=== PATIENT | female | born 1955 | race Caucasian/White ===

== ENCOUNTER 2016-11-11 10:40 | Outpatient (CLI) | payer OTHER ==
[2016-11-11 11:56] LABS: Eosinophils 2 % (0-10); Hemoglobin 12.4 g/dL (12.0-16.0); Lymphocytes 30 % (21-51); MDiff Complete? YES; Mean Corpuscular HGB CONC 35.5 g/dL (32.0-36.0); Mean Corpuscular Hemoglobin 32.4 pg (27.0-31.0); Mean Corpuscular Volume 91.2 fl (81.0-99.0); Mean Platelet Volume 12.1 fL (7.4-10.4); Monocytes 6 % (0-10); Neutrophil 62 % (42-75); PLT Morphology Comment PLATELETS DECREASED ON SLIDE; Platelet Count 88 thou/uL (130-400); RBC Distribution Width 13.7 % (11.5-14.5); Red Blood Cell (RBC) Count 3.81 mill/uL (4.20-5.40); White Blood Cell (WBC) Count 2.2 thou/uL (4.8-10.8)
[2016-11-11 12:05] LABS: ALT (SGPT) Less than 6 U/L (0-55); AST (SGOT) 17 U/L (5-34); Albumin 4.3 g/dL (3.5-5.0); Alkaline Phosphatase 54 U/L (40-150); Anion Gap 15 mmol/L (10-20); BUN (Urea Nitrogen) 10 mg/dL (9.8-20.1); Bilirubin, Total 0.9 mg/dL (0.2-1.2); Calc. Creatinine Clearance 0 mL/min (70-130); Calcium 9.5 mg/dL (7.8-10.44); Carbon Dioxide 25 mmol/L (22-29); Chloride 106 mmol/L (98-107); Estimated GFR-MDRD 60; Globulin 2.8 g/dL (2.4-3.5); Glucose 89 mg/dL (70-105); Potassium 3.9 mmol/L (3.5-5.1); Protein, Total 7.1 g/dL (6.0-8.3); Sodium 142 mmol/L (136-145)
== END 2016-11-11 10:41 | disposition home or self-care (01) ==
LOC: MADLABBHPM 10:40
PROVIDERS: ATTEND Family Medicine
DX: R63.4 Abnormal weight loss (principal)
CPT/HCPCS: 36415; 80053; 84443; 85007; 85027; 85652

== ENCOUNTER 2016-12-09 07:29 | Outpatient (CLI) | payer OTHER ==
[2016-12-09 17:32] LABS: Iron 101 ug/dL (50-170); Iron Binding Capacity, Total 250 mcg/dL (265-497)
[2016-12-09 17:50] LABS: Folate (Folic Acid) 11.5 ng/mL (7.0-31.4)
== END 2016-12-09 07:30 | disposition home or self-care (01) ==
LOC: MADLAB 07:29
PROVIDERS: ATTEND Physician Assistant Medical
DX: D61.818 Other pancytopenia (principal)
CPT/HCPCS: 36415; 82607; 82728; 82746; 83540; 83550

== ENCOUNTER 2017-01-20 08:18 | Outpatient (CLI) | payer OTHER ==
[2017-01-20 09:22] LABS: ALT (SGPT) 9 U/L (0-55); AST (SGOT) 26 U/L (5-34); Albumin 4.5 g/dL (3.5-5.0); Alkaline Phosphatase 49 U/L (40-150); Anion Gap 20 mmol/L (10-20); BUN (Urea Nitrogen) 15 mg/dL (9.8-20.1); Bilirubin, Direct 0.5 mg/dL (0.1-0.3); Bilirubin, Total 1.1 mg/dL (0.2-1.2); Calc. Creatinine Clearance 0 mL/min (70-130); Calcium 9.9 mg/dL (7.8-10.44); Carbon Dioxide 24 mmol/L (22-29); Cardiac Risk 4.1 (Less than 4.5); Chloride 99 mmol/L (98-107); Cholesterol 178 mg/dL (< 200 Desired); Estimated GFR-MDRD 45; Glucose 103 mg/dL (70-105); HDL Cholesterol 43 mg/dL (>60 Neg Risk); LDL Cholesterol, Calculated 107 mg/dL; Protein, Total 7.6 g/dL (6.0-8.3); Sodium 140 mmol/L (136-145); Triglycerides 138 mg/dL (Less than 150)
[2017-01-20 09:40] LABS: #Basophils 0.1 thou/uL (0.0-0.2); #Eosinphils 0.1 thou/uL (0.0-0.7); #Lymphocytes 1.5 thou/uL (1.20-3.40); #Monocytes 0.1 thou/uL (0.11-0.59); #Neutrophils 2.4 thou/uL (1.40-6.50); %Basophils 1.4 % (0.0-1.0); %Eosinophils 1.4 % (0.0-10.0); %Lymphocytes 35.4 % (21.0-51.0); %Monocytes 3.4 % (0.0-10.0); %Neutrophils 58.4 % (42.0-75.0); Hemoglobin 13.8 g/dL (12.0-16.0); Large Platelets SLIGHT; MDiff Complete? YES; Mean Corpuscular HGB CONC 36.2 g/dL (32.0-36.0); Mean Corpuscular Hemoglobin 33.3 pg (27.0-31.0); Mean Corpuscular Volume 91.8 fl (81.0-99.0); Mean Platelet Volume 13.1 fL (7.4-10.4); PLT Morphology Comment Appears Decreased; Platelet Count 121 thou/uL (130-400); RBC Distribution Width 13.8 % (11.5-14.5); Red Blood Cell (RBC) Count 4.15 mill/uL (4.20-5.40); White Blood Cell (WBC) Count 4.2 thou/uL (4.8-10.8)
[2017-01-20 11:24] LABS: Potassium 2.8 mmol/L (3.5-5.1)
== END 2017-01-20 08:19 ==
LOC: MADLABBHPM 08:18
PROVIDERS: ATTEND Family Medicine
DX: D69.6 Thrombocytopenia, unspecified (principal); R63.4 Abnormal weight loss
CPT/HCPCS: 36415; 80048; 80061; 80076; 82306; 82607; 85025

== ENCOUNTER 2017-01-31 07:54 | Outpatient (CLI) | payer OTHER ==
[2017-01-31 08:27] LABS: Anion Gap 18 mmol/L (10-20); BUN (Urea Nitrogen) 16 mg/dL (9.8-20.1); Calc. Creatinine Clearance 0 mL/min (70-130); Calcium 9.7 mg/dL (7.8-10.44); Carbon Dioxide 20 mmol/L (22-29); Chloride 106 mmol/L (98-107); Estimated GFR-MDRD 50; Glucose 112 mg/dL (70-105); Potassium 3.9 mmol/L (3.5-5.1); Sodium 140 mmol/L (136-145)
== END 2017-01-31 07:55 | disposition home or self-care (01) ==
LOC: MADLABBHPM 07:54
PROVIDERS: ATTEND Family Medicine
DX: E87.6 Hypokalemia (principal)
CPT/HCPCS: 36415; 80048

== ENCOUNTER 2017-05-31 08:25 | Outpatient (CLI) | payer OTHER ==
[2017-05-31 11:01] LABS: #Eosinphils 0.1 thou/uL (0.0-0.7); #Lymphocytes 0.9 thou/uL (1.20-3.40); #Monocytes 0.2 thou/uL (0.11-0.59); #Neutrophils 1.6 thou/uL (1.40-6.50); %Basophils 0.8 % (0.0-1.0); %Eosinophils 2.7 % (0.0-10.0); %Lymphocytes 33.5 % (21.0-51.0); %Monocytes 5.4 % (0.0-10.0); %Neutrophils 57.6 % (42.0-75.0); Large Platelets SLIGHT; MDiff Complete? YES; Mean Corpuscular HGB CONC 33.1 g/dL (32.0-36.0); Mean Corpuscular Hemoglobin 33.9 pg (27.0-31.0); Mean Corpuscular Volume 102.3 fl (81.0-99.0); PLT Morphology Comment Appears Decreased; Platelet Count 74 thou/uL (130-400); RBC Distribution Width 13.4 % (11.5-14.5); Red Blood Cell (RBC) Count 3.24 mill/uL (4.20-5.40); White Blood Cell (WBC) Count 2.7 thou/uL (4.8-10.8)
== END 2017-05-31 08:26 | disposition home or self-care (01) ==
LOC: MADLABBHPM 08:25
PROVIDERS: ATTEND Family Medicine
DX: E53.9 Vitamin B deficiency, unspecified (principal)
CPT/HCPCS: 36415; 82607; 85025

== ENCOUNTER 2017-06-02 14:17 | Outpatient (CLI) | payer OTHER | END 2017-06-02 14:18 | disposition home or self-care (01) | LOC: MADLABBHPM 14:17 | PROVIDERS: ATTEND Family Medicine | DX: D53.9 Nutritional anemia, unspecified (principal) | CPT/HCPCS: 36415; 82746 ==

== ENCOUNTER 2018-06-28 09:04 | Outpatient (CLI) | payer BC ==
[2018-06-28 09:54] LABS: INR-International Normal Ratio 1.1; Prothrombin Time 13.9 SEC (12.0-14.7)
[2018-06-28 10:09] LABS: ALT (SGPT) 19 U/L (8-55); AST (SGOT) 37 U/L (5-34); Albumin 3.8 g/dL (3.4-4.8); Alkaline Phosphatase 91 U/L (40-150); Bilirubin, Direct 0.2 mg/dL (0.1-0.3); Bilirubin, Total 0.6 mg/dL (0.2-1.2); Protein, Total 7.1 g/dL (6.0-8.3)
== END 2018-06-28 09:05 | disposition home or self-care (01) ==
LOC: MADLABBHPM 09:04
PROVIDERS: ATTEND Family Medicine
DX: K75.4 Autoimmune hepatitis (principal)
CPT/HCPCS: 36415; 80076; 85610

== ENCOUNTER 2018-09-25 08:33 | Outpatient (CLI) | payer BC | END 2018-09-25 08:34 | disposition home or self-care (01) | LOC: MADEKG 08:33 | PROVIDERS: ATTEND Family Medicine | DX: I49.9 Cardiac arrhythmia, unspecified (principal) | CPT/HCPCS: 93005; 93010 ==

== ENCOUNTER 2019-09-26 07:45 | Outpatient (CLI) | payer MEDICARE ==
[2019-09-26 14:34] LABS: ALT (SGPT) 16 U/L (8-55); AST (SGOT) 30 U/L (5-34); Alkaline Phosphatase 109 U/L (40-110); Anion Gap 15 mmol/L (10-20); BUN (Urea Nitrogen) 11 mg/dL (9.8-20.1); Calc. Creatinine Clearance 0 mL/min (70-130); Calcium 9.4 mg/dL (7.8-10.44); Carbon Dioxide 24 mmol/L (23-31); Chloride 106 mmol/L (98-107); Estimated GFR-MDRD 43; Globulin 3.7 g/dL (2.4-3.5); Glucose 140 mg/dL (80-115); Potassium 3.9 mmol/L (3.5-5.1); Protein, Total 7.7 g/dL (6.0-8.3); Sodium 141 mmol/L (136-145)
[2019-09-26 14:45] LABS: #Lymphocytes 1.2 thou/uL (1.20-3.40); #Monocytes 0.2 thou/uL (0.11-0.59); %Basophils 0.7 % (0.0-1.0); %Eosinophils 0.1 % (0.0-10.0); %Monocytes 4.7 % (0.0-10.0); %Neutrophils 66.5 % (42.0-75.0); Hemoglobin 13.3 g/dL (12.0-16.0); Mean Corpuscular HGB CONC 29.9 g/dL (32.0-36.0); Mean Corpuscular Hemoglobin 28.1 pg (27.0-31.0); Mean Corpuscular Volume 94.1 fL (78.0-98.0); Mean Platelet Volume 9.9 fL (7.4-10.4); Platelet Count 109 thou/uL (130-400); RBC Distribution Width 14.3 % (11.5-14.5); Red Blood Cell (RBC) Count 4.72 mill/uL (4.20-5.40); White Blood Cell (WBC) Count 4.4 thou/uL (4.8-10.8)
[2019-09-26 15:34] LABS: Anisocytosis SLIGHT = 6-15 cells (100X) (0-5/hpf); Platelet Morphology Comment Appears Decreased
== END 2019-09-26 07:46 | disposition home or self-care (01) ==
LOC: MADLABBHPM 07:45
PROVIDERS: ATTEND Family Medicine
DX: N18.9 Chronic kidney disease, unspecified (principal); K75.4 Autoimmune hepatitis
CPT/HCPCS: 36415; 80053; 85025

== ENCOUNTER 2019-11-17 12:07 | Emergency (ER) | payer MEDICARE ==
--- NOTE | 2019-11-17 12:49 | RAD ---
PORTABLE CHEST: HISTORY: Trauma. FINDINGS: The lungs appear clear. No infiltrate or effusion. Heart and mediastinum unremarkable. The visuali zed bony thorax appears intact. IMPRESSION: No acute findings. POS: [facility]
--- NOTE | 2019-11-17 12:59 | RAD ---
EXAM: 3 views of the right shoulder HISTORY: Shoulder pain COMPARISON: None FINDINGS: There is no evidence of acute fracture or dislocation. No degenerative changes are present. No soft tissue swelling is seen. The visualized thorax is unremarkable. IMPRESSION: No evidence of acute osseous abnormality.
--- NOTE | 2019-11-17 13:08 | RAD ---
RIGHT HIP 2 VIEWS: HISTORY: Joint pain. COMPARISON: 10/23/2014 exam. FINDINGS: Mild degenerative changes of the hip. Very mild spurring from the femoral head and acetabulum, not s ignificantly changed from 2014. No fracture or acute abnormality. IMPRESSION: Mild degenerative change at the right hip. POS: [facility]
--- NOTE | 2019-11-17 13:11 | RAD ---
EXAM: Right knee: 4 views INDICATIONS: Knee pain COMPARISON: None. FINDINGS: Joint spaces are maintained. Mild degenerative spurring from the patella. Minimal degenerat henna change at the medial and lateral joint spaces. No joint effusion. No fracture or acute abnormality. IMPRESSION: Very mild degenerative change
--- NOTE | 2019-11-17 13:30 | CT ---
EXAM: CT brain without contrast HISTORY: Head trauma COMPARISON: None TECHNIQUE: Multiple contiguous axial images were obtained and a CT of the brain without contrast. Sag ittal and coronal reformats were performed. FINDINGS: There are scattered hypodensities in the subcortical and periventricular white matter consi stent with small vessel ischemic disease. There is no evidence of hydrocephalus, intracranial hemorrhage, or extra-axial fluid collection. The calvarium and overlying soft tissues are unremarkable. The visualized paranasal sinuses and masto id air cells are well aerated. IMPRESSION: No evidence of acute intracranial abnormality
--- NOTE | 2019-11-17 13:32 | CT ---
EXAM: CT of the cervical spine without contrast HISTORY: Head trauma with neck pain COMPARISON: None TECHNIQUE: Multiple contiguous axial images were obtained in a CT of the cervical spine without contr ast. Sagittal and coronal reformats were performed. FINDINGS: The vertebral bodies and intervertebral discs demonstrate normal height and alignment witho ut fracture or subluxation. No degenerative changes are present. No prevertebral soft tissue swelling is seen. The posterior facets are well aligned. Normal alignment of the skull base with the cervical spine is seen. The lung apices and cervical soft tissues are unremarkable. IMPRESSION: No evidence of acute osseous abnormality of the cervical spine.
--- NOTE | 2019-11-17 13:33 | CT ---
EXAM: CT of the thoracic spine without contrast HISTORY: Back pain after trauma COMPARISON: None TECHNIQUE: Multiple contiguous axial images were obtained in a CT of the thoracic spine without contr ast. Sagittal and coronal reformats were performed. FINDINGS: The vertebral bodies and intervertebral discs demonstrate normal height and alignment witho ut fracture or subluxation. . No degenerative changes are present. Calcified granulomas are seen in the visualized lungs.. The prevertebral and paraspinal soft tissue s are unremarkable. IMPRESSION: No evidence of acute osseous abnormality of the thoracic spine.
--- NOTE | 2019-11-17 13:34 | CT ---
EXAM: CT of the lumbar spine without contrast HISTORY: Low back pain after trauma COMPARISON: None TECHNIQUE: Multiple contiguous axial images were obtained in a CT of the lumbar spine without contras t. Sagittal and coronal reformats were performed. FINDINGS: The vertebral bodies and intervertebral discs demonstrate normal height and alignment witho ut fracture or subluxation. . Mild diffuse degenerative changes are present. Gallbladder has been removed.. The visualized prevertebral and paraspinal soft tissues are unremark able. IMPRESSION: No evidence of acute osseous abnormality of the lumbar spine.
[2019-11-17 13:48] LABS: #Lymphocytes 0.8 thou/uL (1.20-3.40); #Monocytes 0.3 thou/uL (0.11-0.59); #Neutrophils 3.1 thou/uL (1.40-6.50); %Basophils 0.8 % (0.0-1.0); %Eosinophils 0.2 % (0.0-10.0); %Lymphocytes 18.3 % (21.0-51.0); %Monocytes 6.5 % (0.0-10.0); %Neutrophils 74.2 % (42.0-75.0); Anion Gap 12 mmol/L (10-20); BUN (Urea Nitrogen) 10 mg/dL (9.8-20.1); Calc. Creatinine Clearance 0 mL/min (70-130); Calcium 9.3 mg/dL (7.8-10.44); Carbon Dioxide 28 mmol/L (23-31); Chloride 108 mmol/L (98-107); Estimated GFR-MDRD 48; Glucose 80 mg/dL (80-115); Hemoglobin 11.9 g/dL (12.0-16.0); Large Platelets SLIGHT; MDiff Complete? YES; Mean Corpuscular HGB CONC 30.7 g/dL (32.0-36.0); Mean Corpuscular Hemoglobin 28.3 pg (27.0-31.0); Mean Corpuscular Volume 92.1 fL (78.0-98.0); Platelet Count 77 thou/uL (130-400); Platelet Morphology Comment HX OF DECREASED PLATELETS; Potassium 4.6 mmol/L (3.5-5.1); RBC Distribution Width 14.4 % (11.5-14.5); Red Blood Cell (RBC) Count 4.22 mill/uL (4.20-5.40); Sodium 143 mmol/L (136-145); White Blood Cell (WBC) Count 4.2 thou/uL (4.8-10.8)
[2019-11-17 14:46] LABS: Bilirubin Negative (Negative); Blood, Urine Negative (Negative); Clarity Clear (Clear); Glucose, Urine (Dipstick) Negative (Negative); Leukocyte Negative (Negative); Nitrite Negative (Negative); Protein, Urine (Dipstick) Trace mg/dL (Neg-Trace)
== END 2019-11-17 15:00 | disposition home or self-care (01) ==
LOC: MADERS 12:07
DX: S70.01XA Contusion of right hip, initial encounter (principal); S40.011A Contusion of right shoulder, initial encounter; S50.811A Abrasion of right forearm, initial encounter; W18.30XA Fall on same level, unspecified, initial encounter
CPT/HCPCS: 36415; 70450; 71045; 72125; 72128; 72131; 80048; 81003; 85025

== ENCOUNTER 2020-11-25 16:57 | Emergency (ER) | payer MEDICARE ==
--- NOTE | 2020-11-25 18:11 | RAD ---
PORTABLE CHEST: 11/25/20 COMPARISON: 11/17/19 exam. HISTORY: Syncope. FINDINGS: Heart size and mediastinum within normal limits for a portable technique. The lungs are clear of any infiltrative process. IMPRESSION: No active intrathoracic disease. POS: [facility]
[2020-11-25 18:21] LABS: Band 1 % (5-11); Hemoglobin 13.4 g/dL (12.0-16.0); Large Platelets SLIGHT; Lymphocytes 5 % (21-51); MDiff Complete? YES; Mean Corpuscular HGB CONC 32.5 g/dL (32.0-36.0); Mean Corpuscular Hemoglobin 28.6 pg (27.0-31.0); Mean Platelet Volume 10.6 fL (7.4-10.4); Monocytes 3 % (0-10); Neutrophil 85 % (42-75); Platelet Count 106 thou/uL (130-400); Platelet Morphology Comment Appears Decreased; RBC Distribution Width 14.4 % (11.5-14.5); RBC Morphology Normal; Reactive Lymphocytes 6 % (0-10); White Blood Cell (WBC) Count 6.6 thou/uL (4.8-10.8)
[2020-11-25 18:24] LABS: ALT (SGPT) 17 U/L (8-55); AST (SGOT) 45 U/L (5-34); Albumin 3.7 g/dL (3.4-4.8); Alkaline Phosphatase 95 U/L (40-110); Anion Gap 17 mmol/L (10-20); BUN (Urea Nitrogen) 10 mg/dL (9.8-20.1); Bilirubin, Total 1.1 mg/dL (0.2-1.2); Calc. Creatinine Clearance 0 mL/min (70-130); Calcium 8.8 mg/dL (7.8-10.44); Carbon Dioxide 18 mmol/L (23-31); Chloride 108 mmol/L (98-107); Globulin 4.4 g/dL (2.4-3.5); Glucose 160 mg/dL (80-115); Potassium 3.9 mmol/L (3.5-5.1); Protein, Total 8.1 g/dL (5.8-8.1); Sodium 139 mmol/L (136-145)
== END 2020-11-25 19:58 | disposition home or self-care (01) ==
LOC: MADERS 16:57
DX: R41.82 Altered mental status, unspecified (principal); R26.9 Unspecified abnormalities of gait and mobility; Z79.899 Other long term (current) drug therapy
CPT/HCPCS: 51701; 71045; 80053; 84443; 84484; 85025; 93005

== ENCOUNTER 2020-11-26 15:13 | Emergency (ER) | payer MEDICARE ==
[2020-11-26 16:21] LABS: Bilirubin Large (Negative); Blood, Urine Trace (Negative); Glucose, Urine (Dipstick) 100 mg/dL (Negative); Ketone, Urine 40 mg/dL (Negative); Leukocyte Negative (Negative); Nitrite Positive (Negative); Protein, Urine (Dipstick) > or equal to 300 mg/dL (Neg-Trace); Urobilinogen > or = 8.0 mg/dL (Less than 2)
[2020-11-26 16:26] LABS: Clarity Hazy (Clear)
[2020-11-26 16:27] LABS: Bacteria/HPF Rare-Few HPF (None Seen); Mucous/LPF 1+ LPF (<2+); RBC/HPF 0-3 HPF (0-3); Specific Gravity, Urine 1.033 (1.002-1.036); WBC/HPF 0-3 HPF (0-3)
[2020-11-26 16:33] LABS: THC/Cannabinoid Screen Not Detected (NotDetected)
[2020-11-26 16:34] LABS: Amphetamine Not Detected (NotDetected); Barbiturates Screen Not Detected (NotDetected); Benzodiazepine Screen Not Detected (NotDetected); Cocaine Metabolite Screen Not Detected (NotDetected); Medtox Control Line Valid? VALID (VALID); Methadone Not Detected (NotDetected); Methamphetamine Detected (NotDetected); Opiate Screen Not Detected (NotDetected); Oxycodone Screen Not Detected (NotDetected); Phencyclidine (PCP) Detected (NotDetected); Tricyclic Screen Not Detected (NotDetected)
[2020-11-27 13:58] LABS: Reference Lab Name LABCORP
[2020-11-27 14:01] LABS: Ref Lab Test Ordered CONF PCP/METHAMPHETA
== END 2020-11-26 20:25 | disposition home or self-care (01) ==
LOC: MADERS 15:13
DX: F23 Brief psychotic disorder (principal); F03.90 Unspecified dementia, unspecified severity, without behavioral disturbance, psychotic disturbance, mood disturbance, and anxiety; R45.1 Restlessness and agitation
CPT/HCPCS: 36416; 51701; 80306; 81003; 81015

== ENCOUNTER 2020-11-27 15:59 | Emergency (ER) | payer MEDICARE ==
[2020-11-27 17:34] LABS: ALT (SGPT) 18 U/L (8-55); AST (SGOT) 46 U/L (5-34); Albumin 3.4 g/dL (3.4-4.8); Alkaline Phosphatase 79 U/L (40-110); Anion Gap 16 mmol/L (10-20); BUN (Urea Nitrogen) 18 mg/dL (9.8-20.1); Bilirubin, Total 0.9 mg/dL (0.2-1.2); Calc. Creatinine Clearance 0 mL/min (70-130); Calcium 8.3 mg/dL (7.8-10.44); Carbon Dioxide 22 mmol/L (23-31); Chloride 108 mmol/L (98-107); Globulin 3.9 g/dL (2.4-3.5); Glucose 113 mg/dL (80-115); Potassium 3.7 mmol/L (3.5-5.1); Protein, Total 7.3 g/dL (5.8-8.1); Sodium 142 mmol/L (136-145)
[2020-11-27 17:35] LABS: #Lymphocytes 0.6 thou/uL (1.20-3.40); #Monocytes 0.2 thou/uL (0.11-0.59); #Neutrophils 1.8 thou/uL (1.40-6.50); %Basophils 0.7 % (0.0-1.0); %Eosinophils 0.2 % (0.0-10.0); %Lymphocytes 23.7 % (21.0-51.0); %Monocytes 7.2 % (0.0-10.0); %Neutrophils 68.1 % (42.0-75.0); Acetaminophen Less than 6.0 mcg/mL (10.0-30.0); Alcohol Less than 10 mg/dL (Less than 10); Anisocytosis SLIGHT = 6-15 cells (100X) (0-5/hpf); CK (CPK) 428 U/L (29-168); Hemoglobin 11.8 g/dL (12.0-16.0); Hypochromia SLIGHT = 6-15 cells (100X) (0-5/hpf); Large Platelets SLIGHT; MDiff Complete? YES; Mean Corpuscular HGB CONC 33.4 g/dL (32.0-36.0); Mean Corpuscular Hemoglobin 29.4 pg (27.0-31.0); Mean Corpuscular Volume 87.9 fL (78.0-98.0); Mean Platelet Volume 11.6 fL (7.4-10.4); Platelet Count 57 thou/uL (130-400); Platelet Morphology Comment Appears Adequate; RBC Distribution Width 14.6 % (11.5-14.5); Red Blood Cell (RBC) Count 4.03 mill/uL (4.20-5.40); Salicylate Less than 8.0 mg/dL (15.0-30.0); White Blood Cell (WBC) Count 2.6 thou/uL (4.8-10.8)
[2020-11-27 18:27] LABS: Amphetamine Not Detected (NotDetected); Barbiturates Screen Not Detected (NotDetected); Benzodiazepine Screen Detected (NotDetected); Cocaine Metabolite Screen Not Detected (NotDetected); Methadone Not Detected (NotDetected); Methamphetamine Detected (NotDetected); Opiate Screen Not Detected (NotDetected); Oxycodone Screen Not Detected (NotDetected); Phencyclidine (PCP) Detected (NotDetected); THC/Cannabinoid Screen Not Detected (NotDetected); Tricyclic Screen Not Detected (NotDetected)
[2020-11-27 18:28] LABS: Medtox Control Line Valid? VALID (VALID)
[2020-11-28] MEDS ORDERED: Lorazepam 2 MG/ML VIAL ONE (06:49)
[2020-11-28 13:41] LABS: SARS-CoV-2 NAA Rapid Test Not Detected (NotDetected)
== END 2020-11-28 14:50 ==
LOC: MADERS 15:59
DX: F22 Delusional disorders (principal); G30.9 Alzheimer's disease, unspecified; F02.80 Dementia in other diseases classified elsewhere, unspecified severity, without behavioral disturbance, psychotic disturbance, mood disturbance, and anxiety; Z79.899 Other long term (current) drug therapy
CPT/HCPCS: 0240U; 36415; 51701; 80053; 80306; 80307; 82140; 82550; 84443; 85025; 96372; J2060

== ENCOUNTER 2021-06-16 17:49 | Outpatient (CLI) | payer MEDICARE, MEDICAID ==
[2021-06-16 18:08] LABS: INR-International Normal Ratio 1.6; Prothrombin Time 18.9 sec (12.0-14.7)
[2021-06-16 18:19] LABS: ALT (SGPT) 145 U/L (8-55); AST (SGOT) 336 U/L (5-34); Albumin 2.1 g/dL (3.4-4.8); Alkaline Phosphatase 140 U/L (40-110); Anion Gap 17 mmol/L (10-20); BUN (Urea Nitrogen) 77 mg/dL (9.8-20.1); Bilirubin, Total 6.4 mg/dL (0.2-1.2); Calc. Creatinine Clearance 0 mL/min (70-130); Calcium 8.5 mg/dL (7.8-10.44); Carbon Dioxide 26 mmol/L (23-31); Chloride 98 mmol/L (98-107); Cholesterol 148 mg/dl (< 200 Desired); Globulin 4.7 g/dL (2.4-3.5); Glucose 79 mg/dL (80-115); HDL Cholesterol Less than 8 mg/dL (>60 Neg Risk); Potassium 3.9 mmol/L (3.5-5.1); Protein, Total 6.8 g/dL (5.8-8.1); Sodium 137 mmol/L (136-145); Triglycerides 152 mg/dL (Less than 150)
[2021-06-16 18:35] LABS: Thyroid Stimulating Hormone 0.5814 uIU/mL (0.35-4.94)
[2021-06-16 19:57] LABS: #Lymphocytes 1.2 thou/uL (1.20-3.40); #Monocytes 0.2 thou/uL (0.11-0.59); #Neutrophils 5.9 thou/uL (1.40-6.50); %Basophils 0.7 % (0.0-1.0); %Lymphocytes 16.3 % (21.0-51.0); %Monocytes 2.8 % (0.0-10.0); %Neutrophils 80.2 % (42.0-75.0); Hemoglobin 13.1 g/dL (12.0-16.0); Hypochromia SLIGHT = 6-15 cells (100X) (0-5/hpf); MDiff Complete? YES; Macrocytosis SLIGHT = 6-15 cells (100X) (0-5/hpf); Mean Corpuscular Hemoglobin 31.1 pg (27.0-31.0); Mean Corpuscular Volume 100.4 fL (78.0-98.0); Mean Platelet Volume 12.1 fL (7.4-10.4); Platelet Count 55 thou/uL (130-400); Platelet Morphology Comment Appears Decreased; RBC Distribution Width 18.2 % (11.5-14.5); Red Blood Cell (RBC) Count 4.21 mill/uL (4.20-5.40); White Blood Cell (WBC) Count 7.3 thou/uL (4.8-10.8)
[2021-06-17 00:09] LABS: Vitamin B12 Greater than 2000 pg/mL (211-911)
[2021-06-17 00:43] LABS: Vitamin D, 25 Hydroxy 22.9 ng/ml (> 30.0)
[2021-06-17 00:50] LABS: Follow-up Chemistry Comp? YES; Follow-up Result - Chemistry REPORT FAXED
== END 2021-06-16 17:50 | disposition home or self-care (01) ==
LOC: MADLAB 17:49
PROVIDERS: ATTEND Family Medicine
DX: Z13.220 Encounter for screening for lipoid disorders (principal); E03.9 Hypothyroidism, unspecified; E55.9 Vitamin D deficiency, unspecified; E53.9 Vitamin B deficiency, unspecified; R68.89 Other general symptoms and signs; K74.60 Unspecified cirrhosis of liver
CPT/HCPCS: 80053; 80061; 82306; 82607; 84443; 85025; 85610

== ENCOUNTER 2021-06-18 09:28 | Emergency (ER) | payer MEDICARE, MEDICAID ==
[2021-06-18 10:29] LABS: Bilirubin Moderate (Negative); Blood, Urine Negative (Negative); Clarity Clear (Clear); Glucose, Urine (Dipstick) Negative (Negative); Ketone, Urine Negative (Negative); Leukocyte Negative (Negative); Nitrite Negative (Negative); Protein, Urine (Dipstick) Negative (Neg-Trace); Urobilinogen > or = 8.0 mg/dL (Less than 2); pH, Urine 5.5 (5.0-9.0)
[2021-06-18 10:32] LABS: Base Excess-Venous 2.5 mmol/L (-2.0 to 3.0); Bicarbonate (HCO3v) 27.1 mmol/L (22.0-28.0); CO2 Tension (PvCO2) 40.8 mmHg (42.0-51.0); Chloride 99 mmol/L (98-107); Hemoglobin - Calc 13.6 g/dL (12.0-16.0); Potassium 4.9 mmol/L (3.5-5.1); Sodium 141 mmol/L (138-145); T. Carbon Dioxide 28.3 mmol/L (22.0-28.0); vO2 Saturation-calc 98.5 % (60.0-85.0)
[2021-06-18 10:36] LABS: #Basophils 0.1 thou/uL (0.0-0.2); #Lymphocytes 1.3 thou/uL (1.20-3.40); #Monocytes 0.6 thou/uL (0.11-0.59); #Neutrophils 8.7 thou/uL (1.40-6.50); %Basophils 0.9 % (0.0-1.0); %Eosinophils 0.1 % (0.0-10.0); %Monocytes 5.4 % (0.0-10.0); %Neutrophils 81.6 % (42.0-75.0); ALT (SGPT) 142 U/L (8-55); AST (SGOT) 297 U/L (5-34); Albumin 2.1 g/dL (3.4-4.8); Alkaline Phosphatase 160 U/L (40-110); Anion Gap 18 mmol/L (10-20); BUN (Urea Nitrogen) 102 mg/dL (9.8-20.1); Bilirubin, Total 6.4 mg/dL (0.2-1.2); Calc. Creatinine Clearance 0 mL/min (70-130); Calcium 8.5 mg/dL (7.8-10.44); Carbon Dioxide 25 mmol/L (23-31); Chloride 96 mmol/L (98-107); Globulin 4.9 g/dL (2.4-3.5); Glucose 122 mg/dL (80-115); Hemoglobin 13.1 g/dL (12.0-16.0); Lipase 83 U/L (8-78); Mean Corpuscular HGB CONC 31.5 g/dL (32.0-36.0); Mean Corpuscular Hemoglobin 31.3 pg (27.0-31.0); Mean Corpuscular Volume 99.2 fL (78.0-98.0); Platelet Count 79 thou/uL (130-400); Potassium 4.3 mmol/L (3.5-5.1); RBC Distribution Width 19.1 % (11.5-14.5); Sodium 135 mmol/L (136-145); White Blood Cell (WBC) Count 10.6 thou/uL (4.8-10.8)
[2021-06-18 10:37] LABS: Acetaminophen Less than 6.0 mcg/mL (10.0-30.0); Alcohol Less than 10 mg/dL (Less than 10); CK (CPK) 115 U/L (29-168); Magnesium 2.8 mg/dL (1.6-2.6); Salicylate Less than 8.0 mg/dL (15.0-30.0)
[2021-06-18 10:41] LABS: Platelet Morphology Comment Appears Adequate
[2021-06-18 10:42] LABS: Amphetamine Not Detected (NotDetected); Barbiturates Screen Not Detected (NotDetected); Benzodiazepine Screen Not Detected (NotDetected); Cocaine Metabolite Screen Not Detected (NotDetected); Medtox Control Line Valid? VALID (VALID); Methadone Not Detected (NotDetected); Methamphetamine Not Detected (NotDetected); Opiate Screen Not Detected (NotDetected); Oxycodone Screen Not Detected (NotDetected); Phencyclidine (PCP) Not Detected (NotDetected); THC/Cannabinoid Screen Not Detected (NotDetected); Tricyclic Screen Not Detected (NotDetected)
[2021-06-18] MEDS ORDERED: Sodium Chloride 0.9% 1,000 ML ONE (10:52)
[2021-06-18] MEDS ORDERED: Enoxaparin Sodium 80 MG/0.8 ML SYRINGE ONE (11:47)
[2021-06-18 11:53] LABS: Thyroid Stimulating Hormone 0.7034 uIU/mL (0.35-4.94)
[2021-06-18 13:24] LABS: Lactic Acid 3.5 mmol/L (0.5-2.2)
[2021-06-18 14:08] LABS: Free T4 (Free Thyroxine) 0.85 ng/dL (0.70-1.48)
== END 2021-06-18 20:33 | disposition short-term general hospital (02) ==
LOC: MADERS 09:28
DX: K72.90 Hepatic failure, unspecified without coma (principal); N17.9 Acute kidney failure, unspecified; N18.9 Chronic kidney disease, unspecified; R74.01 Elevation of levels of liver transaminase levels; G30.9 Alzheimer's disease, unspecified; F02.80 Dementia in other diseases classified elsewhere, unspecified severity, without behavioral disturbance, psychotic disturbance, mood disturbance, and anxiety; K21.9 Gastro-esophageal reflux disease without esophagitis
CPT/HCPCS: 36415; 51701; 70450; 71045; 74177; 80053; 80306; 80307; 81003; 82140; 82330; 82550; 82803; 83605; 83690; 83735; 83880; 84439; 84443; 84481; 84484; 85025; 86850; 86900; 86901; 87040; 87149; 93005; J1650; J7050